=== PATIENT | female | born 1955 | race Caucasian/White ===

== ENCOUNTER 2020-05-03 09:00 | Emergency (ER) | payer MEDICARE, OTHER, SELFPAY ==
--- NOTE | 2020-05-03 09:11 | ED.EAR ---
HPI - Ear Problem General Chief complaint: Ear Stated complaint: earache Source: patient and RN notes reviewed Limitations: no limitations History of Present Illness HPI Narrative: The patient, a non-smoker /nondrinker , presents with ear discomfort. Patient has a 1 to 2-day worsening at least a 1 week history of left-sided head discomfort with left, nasal and ear pain. No fever, discharge, sore throat, cough, rash, S OB, sneezing/wheezing, smoker/pet triggers, TMJ pain , bruxism, tooth ache-she has regular dental care. No loss of taste/smell, vomiting/diarrhea-she had a prior Covid test earlier in the month. Discussed possible causes [dental, infectious (sinusitis, MRSA, ...etc), acquired,allergic...] and will treat broadly. Related Data Home Medications Medication Instructions Recorded Confirmed albuterol sulfate [Ventolin HFA] 2 puff INHALATION QID PRN 05/03/20 05/03/20 ascorbate calcium (vitamin C) 05/03/20 [Buffered Vitamin C] aspirin [Adult Low Dose Aspirin] 81 mg PO DAILY 05/03/20 05/03/20 calcium carbonate [Caltrate 600] 600 mg PO DAILY 05/03/20 05/03/20 cetirizine [Zyrtec] 10 mg PO DAILY 05/03/20 05/03/20 fluticasone propionate [Flonase] INTRANASAL 05/03/20 glucosamine-chondroitin [Osteo 2 tablet PO TID 05/03/20 05/03/20 Bi-Flex] Allergies Allergy/AdvReac Type Severity Reaction Status Date / Time No Known Allergies Allergy Verified 05/03/20 09:07 Review of Systems Review of Systems: Narrative: General/Constitutional: No weight loss,fever Eyes: N0: Redness,discharge Ears/Nose/Throat: No: Epistaxis,ear discharge Respiratory: Denies: Hemoptysis Gastrointestinal: No Vomiting, Bleeding-rectal Skin: No Lumps, eruption Neurologic: No Focal Weakness,Sz Hematologic: Denies: Petechiae/Purpura Psychiatric: No: Suicida ideationl All Other Systems: Reviewed and Negative PMFSH Comments At time of signature, agree with nursing past medical, surgical, social and family history. There is no relevant family history pertinent to the presenting complaint Exam Narrative: Exam Narrative: General Appearance: Well appearing,, Conjunctiva clear Ears: Auditory canal normal, TM and EAC normal Nose: Min Rhinorrhea, Mucousal erythema Mouth/Throat: MM moist, Uvula midline, Pharyngeal erythema Neck: Supple, No adenopathy Respiratory: No respiratory distress, Breath sounds equal, Clear to auscultation Cardiovascular: No JVD Musculoskeletal: Non tender, Normal strength Skin: Warm, Dry Neurological: A&O x3, Normal affect Course Vital Signs Vital signs: Vital Signs Temperature 97.7 F 05/03/20 09:20 Pulse Rate 92 05/03/20 09:20 Respiratory Rate 16 05/03/20 09:20 Blood Pressure 149/88 H 05/03/20 09:20 Pulse Oximetry 99 05/03/20 09:20 Temperature 97.7 F 05/03/20 09:20 Pulse Rate 92 05/03/20 09:20 Respiratory Rate 16 05/03/20 09:20 Blood Pressure 149/88 H 05/03/20 09:20 Pulse Oximetry 99 05/03/20 09:20 Medical Decision Making Vital Signs Vital Signs: Vital Signs Temperature 97.7 F 05/03/20 09:20 Pulse Rate 92 05/03/20 09:20 Respiratory Rate 16 05/03/20 09:20 Blood Pressure 149/88 H 05/03/20 09:20 Pulse Oximetry 99 05/03/20 09:20 Temperature 97.7 F 05/03/20 09:20 Pulse Rate 92 05/03/20 09:20 Respiratory Rate 16 05/03/20 09:20 Blood Pressure 149/88 H 05/03/20 09:20 Pulse Oximetry 99 05/03/20 09:20 Discharge Plan Discharge Clinical Impression: Otalgia, left ear, PND (post-nasal drip) Patient Disposition: Home, Self-Care Condition: Stable Instructions: Antibiotic Form, Earache (ED) Prescriptions: New clindamycin HCl 300 mg capsule 300 mg PO TID Qty: 15 RF: 0 [id number] 3.5-10,000-1 mg/mL-unit/mL-% drops,suspension 4 drp LEFT EAR Q6H 7 Days Qty: 10 RF: 0 tramadol 50 mg tablet 50 mg PO Q6H PRN (Reason: pain) Qty: 10 RF: 0 No Action cetirizine [Zyrtec] 10 mg Tablet 10
[2020-05-03 09:20] VITALS: BP 149/88; PULSE 92; RESP 16; TEMP 36.5; O2SAT 99
== END 2020-05-03 09:50 | disposition home or self-care (01) ==
PROVIDERS: Emergency Provider Emergency Medicine
DX: H92.02 Otalgia, left ear (principal); R09.82 Postnasal drip; E78.00 Pure hypercholesterolemia, unspecified; J45.909 Unspecified asthma, uncomplicated; R73.03 Prediabetes
CPT/HCPCS: 99213; G0463